=== PATIENT | female | born 1965 | race African-American/Black ===

== ENCOUNTER 2024-10-01 10:20 | Day surgery (SDC) | payer MEDICAID ==
[2024-10-01] MEDS: Polymyxin B/Trimethoprim 10 ML Bottle EYERT SCH (11:24)
[2024-10-01] MEDS: Brimonidine 0.2% Ophth Soln 5 ML Bottle EYERT SCH (11:30)
[2024-10-01] MEDS: Phenylephrine 2.5% Ophth Soln 2 ML Bot EYERT SCH (11:38)
[2024-10-01] MEDS: LORazepam 1 MG Tab PO ONE (11:40)
[2024-10-01] MEDS: Tropicamide 1% Ophth Soln 3 ML Bottle EYERT SCH (11:44)
[2024-10-01] MEDS: Tetracaine HCl/PF 0.5% 4 ML Bottle EYEBOTH SCH (12:13)
[2024-10-01] MEDS: Lidocaine 1% PF 2 ML SDV INJECT SCH (12:13)
[2024-10-01] MEDS: Cefuroxime 10 MG/ML SYRINGE EYERT SCH (12:25)
[2024-10-01] MEDS: Pilocarpine 4% Ophth Soln 15 ML Bot EYERT SCH (12:26)
== END 2024-10-01 13:26 | disposition home or self-care (01) ==
LOC: JD.SDS 10:20
PROVIDERS: ATTEND Ophthalmology
DX: H25.813 Combined forms of age-related cataract, bilateral (principal); H40.013 Open angle with borderline findings, low risk, bilateral; H43.813 Vitreous degeneration, bilateral; H35.3131 Nonexudative age-related macular degeneration, bilateral, early dry stage; H31.093 Other chorioretinal scars, bilateral; H16.103 Unspecified superficial keratitis, bilateral; H16.223 Keratoconjunctivitis sicca, not specified as Sjogren's, bilateral; H43.393 Other vitreous opacities, bilateral; I10 Essential (primary) hypertension; E78.2 Mixed hyperlipidemia; J45.909 Unspecified asthma, uncomplicated; F17.200 Nicotine dependence, unspecified, uncomplicated; Z79.899 Other long term (current) drug therapy
CPT/HCPCS: 66984; A9270; J3490